=== PATIENT | female | born 1965 | race Hispanic/Latino ===

== ENCOUNTER 2018-09-23 21:47 | Emergency (ER) | payer MEDICARE | END 2018-09-23 22:32 | disposition home or self-care (01) | LOC: EDH 21:47 | DX: G89.29 Other chronic pain (principal); R07.89 Other chest pain; R20.8 Other disturbances of skin sensation; F20.9 Schizophrenia, unspecified; Z90.710 Acquired absence of both cervix and uterus | CPT/HCPCS: 99281 ==

== ENCOUNTER 2018-11-27 21:34 | Emergency (ER) | payer MEDICARE ==
[2018-11-27] MEDS ORDERED: DiphenhydrAMINE HCL 50 MG/ML VIAL ONE (23:03)
[2018-11-27] MEDS ORDERED: ACETAMINOPHEN EXTRA STRENGTH 500 MG TABLET ONE (23:25)
[2018-11-27 23:33] LABS: APPEARANCE,URINE Clear (CLEAR); BILIRUBIN,URINE Negative (NEGATIVE); COLOR,URINE Yellow (YELLOW); GLUCOSE, URINE (UA) Negative (NEGATIVE); KETONES,URINE Trace mg/dL (NEGATIVE); LEUKOCYTE ESTERASE ,URINE Moderate (NEGATIVE); NITRATE,URINE Negative (NEGATIVE); OCCULT BLOOD,URINE Negative (NEGATIVE); PROTEIN,URINE Negative (NEGATIVE); UROBILINOGEN,URINE 0.2 mg/dL (0.2-1.0)
[2018-11-27 23:44] LABS: BACTERIA,URINE None Seen /HPF (None Seen); RBC,URINE None Seen /HPF (0-1); SQUAMOUS EPITHELIAL CELL,UR Rare /HPF (0-2); WBC,URINE 0-1 /HPF (0-1)
== END 2018-11-28 00:22 | disposition home or self-care (01) ==
LOC: EDH 21:34
DX: F20.9 Schizophrenia, unspecified (principal); R07.89 Other chest pain; F31.9 Bipolar disorder, unspecified; Z90.710 Acquired absence of both cervix and uterus
CPT/HCPCS: 71046; 76770; 81001; 96372; 99285; J1200

== ENCOUNTER 2020-03-10 00:42 | Emergency (ER) | payer MEDICARE ==
[2020-03-10] MEDS ORDERED: LIDOCAINE HCL 2% VISCOUS 15 ML UDCUP ONE (00:55)
[2020-03-10] MEDS ORDERED: MAG HYDROX/AL HYDROX/SIMETH ES 30 ML SUSP UDCUP ONE (00:57)
== END 2020-03-10 01:11 | disposition home or self-care (01) ==
LOC: EDH 00:42
DX: K13.79 Other lesions of oral mucosa (principal); F31.9 Bipolar disorder, unspecified; F20.9 Schizophrenia, unspecified; Z90.49 Acquired absence of other specified parts of digestive tract; Z90.710 Acquired absence of both cervix and uterus

== ENCOUNTER 2020-11-26 11:21 | Emergency (ER) | payer OTHER, MEDICARE ==
[~2020-11-26] VITALS: Ht 175.3 cm; Wt 90.7 kg
[2020-11-26 12:09] LABS: APPEARANCE,URINE Clear (CLEAR); BILIRUBIN,URINE Negative (NEGATIVE); COLOR,URINE Yellow (YELLOW); GLUCOSE, URINE (UA) Negative (NEGATIVE); KETONES,URINE Negative (NEGATIVE); LEUKOCYTE ESTERASE ,URINE Trace (NEGATIVE); NITRATE,URINE Negative (NEGATIVE); OCCULT BLOOD,URINE Negative (NEGATIVE); PH,URINE 7.5 (5.0-8.0); PROTEIN,URINE Negative (NEGATIVE); UROBILINOGEN,URINE 0.2 mg/dL (0.2-1.0)
[2020-11-26 12:16] LABS: AMPHET/METH SCREEN,URINE NEGATIVE (NEGATIVE); BARBITURATE SCREEN, URINE NEGATIVE (NEGATIVE); BENZODIAZEPINES SCREEN,URINE NEGATIVE (NEGATIVE); CANNABINOID SCREEN,URINE NEGATIVE (NEGATIVE); COCAINE SCREEN,URINE NEGATIVE (NEGATIVE); OPIATE SCREEN,URINE NEGATIVE (NEGATIVE); PHENCYCLIDINE SCREEN,URINE NEGATIVE (NEGATIVE)
[2020-11-26 12:28] LABS: SQUAMOUS EPITHELIAL CELL,UR Few /HPF (0-2)
[2020-11-26 12:29] LABS: BACTERIA,URINE Few /HPF (None Seen); RBC,URINE None Seen /HPF (0-1); WBC,URINE 0-1 /HPF (0-1)
[2020-11-26 12:30] LABS: BASOPHILS % (AUTO) 0.3 % (0.0-5.0); EOSINOPHILS % (AUTO) 0.7 % (0.0-8.0); HEMATOCRIT 40.2 % (36-48); LYMPHOCYTES % (AUTO) 15.7 % (21.0-51.0); MEAN CORPUSCULAR HEMOGLOBIN 28.9 pg (27.0-33.0); MEAN CORPUSCULAR HGB CONC 33.1 g/dL (32.0-36.0); MEAN CORPUSCULAR VOLUME 87.2 fL (79-99); PLATELET COUNT (AUTO) 334 K/uL (130-400); RED BLOOD CELL COUNT(AUTO) 4.61 MIL/uL (4.00-5.50); RED CELL DISTRIBUTION WIDTH 14.4 % (11.0-15.5); WHITE BLOOD COUNT (AUTO) 7.5 K/uL (4.8-10.8)
[2020-11-26 12:40] LABS: CARBON DIOXIDE 30 mmol/L (21-32); CHLORIDE 105 mmol/L (101-111); CREATININE 0.7 mg/dL (0.5-1.5); GLOMERULAR FILTR. RATE CALC 93 mL/min (>60); GLUCOSE,RANDOM 111 mg/dL (70-105); POTASSIUM 4.5 mmol/L (3.5-5.1); SODIUM SERUM 143 mmol/L (136-145); UREA NITROGEN, BLOOD 18 mg/dL (7-18)
[2020-11-26 12:45] LABS: ALANINE AMINOTRANSFERASE 24 U/L (12-78); ALBUMIN 3.9 g/dL (3.5-5.0); ALCOHOL, BLOOD < 3 mg/dL (0-10); ASPARTATE AMINOTRANSFERASE 18 U/L (10-37); BILIRUBIN,TOTAL 0.4 mg/dL (0.2-1.0); CREATINE KINASE, TOTAL 56 U/L (21-232); TOTAL PROTEIN, SERUM 7.9 g/dL (6.0-8.3)
[2020-11-26 12:46] LABS: ACETAMINOPHEN < 1 mcg/mL (10-30)
[2020-11-26 14:15] VITALS: BP 126/74
== END 2020-11-26 14:37 | disposition left against medical advice (07) ==
LOC: EDH 11:21
DX: R45.851 Suicidal ideations (principal); F20.9 Schizophrenia, unspecified; F41.9 Anxiety disorder, unspecified; F31.9 Bipolar disorder, unspecified; Z98.890 Other specified postprocedural states
CPT/HCPCS: 36415; 80053; 80305; 81001; 82550; 85025; 93005; 99284; G0481

== ENCOUNTER 2023-02-04 12:40 | Emergency (ER) | payer OTHER, MEDICARE ==
[~2023-02-04] VITALS: Ht 167.6 cm; Wt 90.7 kg
[~2023-02-04 12:40] MED LIST: CEPH500B PO
[2023-02-04 12:43] VITALS: BP 143/70; PULSE 72; RESP 18; O2SAT 100
[2023-02-04 13:27] LABS: SARS-CoV-2, RNA, NAAT NEGATIVE SARS CoV-2 (NEGATIVE)
[2023-02-04 13:33] LABS: INFLUENZA TYPE A Negative For Type A (NEGATIVE); INFLUENZA TYPE B Negative For Type B (NEGATIVE)
[2023-02-04 13:39] LABS: RAPID GROUP A STREP negative (NEGATIVE)
== END 2023-02-04 15:07 | disposition left against medical advice (07) ==
LOC: EDH 12:40
DX: R06.7 Sneezing (principal); J31.0 Chronic rhinitis; J02.9 Acute pharyngitis, unspecified; I10 Essential (primary) hypertension; F20.9 Schizophrenia, unspecified; F31.9 Bipolar disorder, unspecified; Z60.2 Problems related to living alone; Z20.822 Contact with and (suspected) exposure to COVID-19
CPT/HCPCS: 99283; 87635; 87880; 87804 ×2; C9803

== ENCOUNTER 2023-03-04 13:25 | Emergency (ER) | payer MEDICARE ==
[~2023-03-04] VITALS: Ht 162.6 cm; Wt 90.7 kg
[2023-03-04 13:30] VITALS: BP 110/69; PULSE 67; RESP 18
== END 2023-03-04 16:31 | disposition left against medical advice (07) ==
LOC: EDH 13:25
DX: R21 Rash and other nonspecific skin eruption (principal); Z53.21 Procedure and treatment not carried out due to patient leaving prior to being seen by health care provider
CPT/HCPCS: 99281

== ENCOUNTER → 2023-04-20 | Emergency (ER) | payer MEDICARE, MEDICAID | LOC: EDH 08:37 | DX: R52 Pain, unspecified (principal); Z53.21 Procedure and treatment not carried out due to patient leaving prior to being seen by health care provider ==

== ENCOUNTER 2023-11-30 01:30 | Emergency (ER) | payer MEDICARE ==
[2023-11-30] MEDS ORDERED: CEPH500B PO (15:30)
== END 2023-11-30 01:31 | disposition left against medical advice (07) ==
LOC: EDH 01:30
DX: M79.671 Pain in right foot (principal); M79.672 Pain in left foot; Z53.21 Procedure and treatment not carried out due to patient leaving prior to being seen by health care provider

== ENCOUNTER 2024-06-23 12:36 | Emergency (ER) | payer MEDICARE ==
[~2024-06-23] VITALS: Ht 175.3 cm; Wt 63.5 kg
--- NOTE | 2024-06-23 12:59 | NUR ---
PT WAS PLACED IN HOSPITAL PAPER SCRUBS AND IS NOW ON A 1:1. SECURITY CALLED TO COME AND RETRIEVE AND SECURE PERSONAL BAG
--- NOTE | 2024-06-23 13:16 | NUR ---
REPORT ENDORSED TO MARISSA COVARRUBIAS
[2024-06-23 13:20] LABS: AMPHET/METH SCREEN,URINE NEGATIVE (NEGATIVE); BARBITURATE SCREEN, URINE NEGATIVE (NEGATIVE); BENZODIAZEPINES SCREEN,URINE NEGATIVE (NEGATIVE); CANNABINOID SCREEN,URINE NEGATIVE (NEGATIVE); COCAINE SCREEN,URINE NEGATIVE (NEGATIVE); OPIATE SCREEN,URINE NEGATIVE (NEGATIVE); PHENCYCLIDINE SCREEN,URINE NEGATIVE (NEGATIVE)
[2024-06-23 13:26] LABS: APPEARANCE,URINE CLEAR (CLEAR); BILIRUBIN,URINE NEGATIVE (NEGATIVE); COLOR,URINE YELLOW (YELLOW); GLUCOSE, URINE (UA) NEGATIVE (NEGATIVE); KETONES,URINE NEGATIVE (NEGATIVE); LEUKOCYTE ESTERASE ,URINE 75 Leu/uL (NEGATIVE); NITRATE,URINE NEGATIVE (NEGATIVE); OCCULT BLOOD,URINE NEGATIVE (NEGATIVE); PROTEIN,URINE NEGATIVE (NEGATIVE); UROBILINOGEN,URINE 0.2 mg/dL (0.2-1.0)
--- NOTE | 2024-06-23 13:27 | NUR ---
PT STATES SHE WANTS TO KILL HERSELF BY TAKING RAT POISON. PT STATES SHE HAS BEEN FEELING MORE URGENCY IN REGARDS TO COMMITING SUICIDE SHE FEELS HER VISUAL HALLUCINATIONS ARE ACCELERATING.
[2024-06-23 13:34] LABS: ADD UA MICROSCOPIC YES
[2024-06-23 13:35] LABS: MUCUS,URINE RARE LPF (None Seen); RBC,URINE 0-1 /HPF (0-1); SQUAMOUS EPITHELIAL CELL,UR RARE /HPF (0-2)
[2024-06-23 13:39] LABS: BASOPHILS # (AUTO) 0.03 K/uL (0.00-0.20); BASOPHILS % (AUTO) 0.4 % (0.0-5.0); EOSINOPHILS # (AUTO) 0.03 K/uL (0.00-0.70); EOSINOPHILS % (AUTO) 0.4 % (0.0-8.0); HEMATOCRIT 33.8 % (36-48); IMMATURE GRANULOCYTE ABSOLUTE 0.03 K/uL (0-1); LYMPHOCYTES # (AUTO) 1.5 K/uL (1.0-4.8); LYMPHOCYTES % (AUTO) 18.9 % (21.0-51.0); MEAN CORPUSCULAR HEMOGLOBIN 28.7 pg (27.0-33.0); MEAN CORPUSCULAR HGB CONC 33.7 g/dL (32.0-36.0); MEAN CORPUSCULAR VOLUME 85.1 fL (79-99); MONOCYTES # (AUTO) 0.6 K/uL (0.1-1.0); MONOCYTES % (AUTO) 7.5 % (3.0-13.0); NEUTROPHILS # (AUTO) 5.7 K/uL (1.8-7.7); NEUTROPHILS % (AUTO) 72.4 % (40.0-77.0); PLATELET COUNT (AUTO) 287 K/uL (130-400); RED BLOOD CELL COUNT(AUTO) 3.97 MIL/uL (4.00-5.50); RED CELL DISTRIBUTION WIDTH 15.3 % (11.0-15.5); WHITE BLOOD COUNT (AUTO) 7.9 K/uL (4.8-10.8)
[2024-06-23 13:48] LABS: CARBON DIOXIDE 30 mmol/L (21-32); CHLORIDE 103 mmol/L (101-111); CREATININE 0.7 mg/dL (0.5-1.0); GLOMERULAR FILTR. RATE CALC 100 mL/min (>90); GLUCOSE,RANDOM 104 mg/dL (70-105); SODIUM SERUM 137 mmol/L (136-145); UREA NITROGEN, BLOOD 22 mg/dL (7-18)
[2024-06-23 13:53] LABS: CREATINE KINASE, TOTAL 84 U/L (21-232)
[2024-06-23 13:56] LABS: ACETAMINOPHEN < 1 mcg/mL (10-30); ALCOHOL, BLOOD < 3 mg/dL (0-10); SALICYLATE < 2.8 mg/dL (2.8-20.0)
--- NOTE | 2024-06-23 14:40 | NUR ---
[facility] WAS CALLED AT THIS TIME, STATE THEY WILL SEND A FIELD ASSEMBLY SUPERVISOR TO EVALUATE HER SOON POSSIBLE.
--- NOTE | 2024-06-23 14:45 | NUR ---
PT STATES SHE WANTS TO LEAVE, WAS ADVISED THAT [facility] IS ON THE WAY. SRTATES SHE IS WILLING TO WAIT
--- NOTE | 2024-06-23 15:15 | NUR ---
STATES SHE WANTS TO LEAVE. MD WAS ADVISED, STATES [facility] WILL HAVE TO BE CALLED. PT WAS ADVSIED THAT SHE WAS UNDER SI WATCH AND [facility] HAS NOT CLEARED HER, [facility] WILL BE CALLED IF SHE WERE TO LEAVE. PT STATES "GPO AHEAD AND GET [facility] HERE, I WANT TO TALK TO THEM'.
--- NOTE | 2024-06-23 15:20 | NUR ---
[facility] WAS CALLED AND DISPATCH STATES THEY WILL SEND SOMEONE TO THE ED
--- NOTE | 2024-06-23 15:26 | NUR ---
[facility] SCREENER IS AT BEDSIDE, STATES PT IS NOT WILLING TO BE SCREENED AT THIS TIME.
--- NOTE | 2024-06-23 15:27 | NUR ---
[facility] SCREENER CAME BY AND STATES PT IS NOW WILLING TO DO SCREENING. WILL ATTEMPT TO DO SCREENING
--- NOTE | 2024-06-23 15:46 | NUR ---
[facility] IS AT BEDSIDE
--- NOTE | 2024-06-23 15:58 | NUR ---
[facility] [employer]: [facility] OFFICER JESSICA SPOKE TO THE PT. NO CASE NUMBER NECESSARY.
--- NOTE | 2024-06-23 16:36 | ERN ---
General Chief Complaint: Psych Evaluation Stated Complaint: SUICIDAL IDEATION Time Seen by MD: 12:38 Source: patient History of Present Illness Initial Comments Patient is a 58-year-old female with a extensive psychiatric history coming in to be evaluated for suicidal ideation. Patient states that she does not want to live in his here for help. Allergies: Coded Allergies: No Known Drug Allergies (Unverified Allergy, Unknown, 09/23/18) Home Meds Active Scripts Cephalexin Monohydrate (Keflex) 500 Mg Cap, 1 CAP PO BID for 10 Days, #20 CAP 0 Refills Prov:BABAK CLEANING MD 11/30/23 Cephalexin Monohydrate (Keflex) 500 Mg Cap, 500 MG PO QID for 7 Days, #28 CAP Prov:STARR FREITAS MD 07/21/23 Past Medical History Past Medical History: Bipolar, High Cholesterol, Hypertension, Schizophrenia, Other Medical History Other: SI/SA, AUDITORY HALLUCINATIONS Past Surgical History: None Surgical History Other: BILATERAL BREAST Social History Social History: Lives alone Female( History) History: Not Applicable ROS Dictation CONSTITUTIONAL: No chills, no fever, no weakness, no diaphoresis, no malaise. HEAD/FACE: No signs of trauma. EENT: No eye pain, no blurred vision, no tearing, no double vision, no ear pain, no ear discharge, no nose pain, no nasal congestion, no throat pain, no throat swelling, no mouth pain. RESPIRATORY: No cough, no orthopnea, no SOB, no stridor, no wheezing. CARDIOVASCULAR: No chest pain, no edema, no palpitations, no syncope. GASTROINTESTINAL/ABDOMINAL: No abdominal pain, no constipation, no diarrhea, no nausea, no vomiting. GENITOURINARY: No abnormal discharge, no dysuria, no frequent urination, no hematuria. No complaints of pain in the genitals. MUSCULOSKELETAL: No back pain, no gout, no joint pain, no joint swelling, no muscle pain, no muscle stiffness, no neck pain. INTEGUMENTARY: No change in color, no change in hair/nails, no dryness, no lesion, no lumps, no rash. NEUROLOGICAL/PSYCH: No anxiety, not depressed, no emotional problem, no headache, no numbness, no pre-existing deficit, no history of seizures, no tremors, no weakness. HEMATOLOGIC/LYMPHATIC: Not anemic, no history of blood clots, no apparent bleeding, no bruising, glands not swollen. All Systems Negative, Except as Noted. Physical Exam Physical Exam Dictation VITAL SIGNS: Reviewed. GENERAL APPEARANCE: Alert, oriented x3, no acute distress, obese. HEAD AND FACE: Non-traumatic. EYES: PERRL, pink conjunctivas, eyelid no trauma, anterior chamber clear. EARS: Pinnas intact and no signs of trauma or erythema. Ear canals clear and no discharge. TMs no erythema. NOSE: No discharge, no bleeding. OROPHARYNX: Mouth normal, teeth no caries, tongue pink. Pharynx clear, no erythema. Tonsils no exudates, no abscesses noted. Mucous membrane moist. NECK: Supple, non-tender, no thyromegaly, no masses, no JVD, no bruits. BREAST: Deferred. CHEST: No tenderness, no crepitus, no paradoxical movement, no retractions. LUNGS: Clear, well-ventilated, symmetric, no rales, no wheezing, no rhonchi, no stridor, good breath sounds bilaterally. HEART: Regular rate, regular rhythm, no murmur, no gallops. VASCULAR: No peripheral edema. ABDOMEN: Soft, positive bowel sounds, nondistended, no guarding, nontender, no rebound, no masses no hepatomegaly, no splenomegaly, no Dumont's sign, no hernias. RECTAL: Deferred. GENITAL: Deferred. NEUROLOGICAL: Normal speech, gross motor function intact, gross sensory function intact. MUSCULOSKELETAL: Neck nontender, full range of motion, back nontender, full range of motion. EXTREMITIES: Nontender, full range of motion. SKIN: Color pink, dry, no turgor, no rash, no lacerations, no abrasions, no contusions. LYMPHATICS: Deferred. Results Laboratory and Microbiology Lab and Micro Result Laboratory Tests Test 06/23/24 12:59 06/23/24 13:36 Urine Color YELLOW (YELLOW) Urine Appearance CLEAR (CLEAR) Urine pH 6.0 (5.0-8.0) Urine Specific [place] 1.020 (1.001-1.031) Urine Protein NEGATIVE mg/dL (NEGATIVE) Urine Glucose (UA) NEGATIVE mg/dL (NEGATIVE) Urine Ketones NEGATIVE mg/dL (NEGATIVE) Urine Occult Blood NEGATIVE (NEGATIVE) Urine Nitrate NEGATIVE (NEGATIVE) Urine Bilirubin NEGATIVE mg/dL (NEGATIVE) Urine Urobilinogen 0.2 mg/dL (0.2-1.0) Urine Leukocyte Esterase 75 Mariann/uL (NEGATIVE) H Urine RBC 0-1 /HPF (0-1) Urine WBC 2-5 /HPF (0-1) H Urine Squamous Epithelial Cells RARE /HPF (0-2) Urine Bacteria None /HPF (None Seen) Urine Opiates Screen NEGATIVE (NEGATIVE) Urine Barbiturates Screen NEGATIVE (NEGATIVE) Urine Phencyclidine Screen NEGATIVE (NEGATIVE) Urine Amphetamines Screen NEGATIVE (NEGATIVE) Urine Benzodiazepines Screen NEGATIVE (NEGATIVE) Urine Cocaine Screen NEGATIVE (NEGATIVE) Urine Marijuana (THC) Screen NEGATIVE (NEGATIVE) White Blood Count 7.9 K/uL (4.8-10.8) Red Blood Count 3.97 MIL/uL (4.00-5.50) L Hemoglobin 11.4 g/dL (12.0-16.0) L Hematocrit 33.8 % (36-48) L Mean Corpuscular Volume 85.1 fL (79-99) Mean Corpuscular Hemoglobin 28.7 pg (27.0-33.0) Mean Corpuscular Hemoglobin Concent 33.7 g/dL (32.0-36.0) Red Cell Distribution Width 15.3 % (11.0-15.5) Platelet Count 287 K/uL (130-400) Mean Platelet Volume 9.0 fL (7.5-10.5) Immature Granulocyte % (Auto) 0.4 % (0-1) Neutrophils (%) (Auto) 72.4 % (40.0-77.0) Lymphocytes (%) (Auto) 18.9 % (21.0-51.0) L Monocytes (%) (Auto) 7.5 % (3.0-13.0) Eosinophils (%) (Auto) 0.4 % (0.0-8.0) Basophils (%) (Auto) 0.4 % (0.0-5.0) Neutrophils # (Auto) 5.7 K/uL (1.8-7.7) Lymphocytes # (Auto) 1.5 K/uL (1.0-4.8) Monocytes # (Auto) 0.6 K/uL (0.1-1.0) Eosinophils # (Auto) 0.03 K/uL (0.00-0.70) Basophils # (Auto) 0.03 K/uL (0.00-0.20) Absolute Immature Granulocyte (auto 0.03 K/uL (0-1) Nucleated Red Blood Cells 0.0 % (0.0-0.19) Sodium Level 137 mmol/L (136-145) Potassium Level 4.0 mmol/L (3.5-5.1) Chloride Level 103 mmol/L (101-111) Carbon Dioxide Level 30 mmol/L (21-32) Blood Urea Nitrogen 22 mg/dL (7-18) H Creatinine 0.7 mg/dL (0.5-1.0) Glomerular Filtration Rate Calc 100 mL/min (>90) Random Glucose 104 mg/dL (70-105) Total Calcium 9.2 mg/dL (8.5-10.1) Total Creatine Kinase 84 U/L (21-232) # Salicylates Level < 2.8 mg/dL (2.8-20.0) L Acetaminophen Level < 1 mcg/mL (10-30) L Serum Alcohol < 3 mg/dL (0-10) Labs Reviewed?: Yes MDM MDM: Differential diagnosis: Suicidal ideation, psychiatric illness Rationale: Tests considered and ordered secondary to shared decision making include: Previous outside records reviewed: Old ER visits. Risk of complication and/or morbidity or mortality of patient management: None Patient is a 58-year-old female coming in to be evaluated for psychiatric illness. She states that he has been suicidal. Patient was evaluated by mental health facility does not meet criteria for inpatient treatment is scheduled for outpatient management. Patient states that she has been longer suicidal and will follow up with plan as agreed upon. ED Course Orders Procedure Category Date Status Time Cbc With Differential LAB 06/23/24 Complete 12:52 Basic Metabolic Panel LAB 06/23/24 Complete 12:52 Alcohol, Blood LAB 06/23/24 Complete 12:52 Salicylate LAB 06/23/24 Complete 12:52 Acetaminophen LAB 06/23/24 Complete 12:52 Urinalysis Profile LAB 06/23/24 Complete 12:52 Creatine Kinase, Total LAB 06/23/24 Complete 12:52 Drug Screen Urine LAB 06/23/24 Complete 12:52 Culture Urine JOEY 06/23/24 In Process 13:34 DX & DISP Disposition: Discharge Departure Impression: Primary Impression: Suicidal ideations Condition: Stable Additional Instructions: FOLLOW-UP WITH PRIMARY CARE PROVIDER IN 1 TO 2 DAYS. TAKE MEDICATIONS DIRECT ED HERE IN THE EMERGENCY ROOM. OKAY TO CONTINUE HOME MEDICATIONS UNLESS OTHERWISE DISCUSSED DURING YOUR VISIT IN THE EMERGENCY ROOM TODAY. RETURN TO YOUR NEAREST EMERGENCY ROOM IF SYMPTOMS WORSEN OR IF THERE IS NO IMPROVEMENT. CALL 911 IF YOU NEED IMMEDIATE ASSISTANCE. TAKE TYLENOL [id number] NEEDED AND IF NO CONTRAINDICATIONS ARE PRESENT. INCREASE ORAL HYDRATION. A WOUND CULTURE OR URINE CULTURE WAS ORDERED HERE IN THE EMERGENCY ROOM DEPARTMENT PLEASE FOLLOW-UP WITH PRIMARY CARE PROVIDER AND ADVISE THEM TO GET REPEAT PORTS FROM OUR FACILITY. IF YOU HAD ANY DAMIEN WRAP/SPLINTS THAT WERE APPLIED HERE, PLEASE DO NOT REMOVE THEM UNTIL YOU SEE YOUR PRIMARY CARE OR SPECIALTY. Referrals: Referrals: KVNG LEAHY (PCP) Time of Disposition: 16:35 BABAK CLEANING MD June 23, 2024 16:35
[2024-06-23 16:42] VITALS: BP 129/61; PULSE 71; RESP 18; TEMP 97.2; O2SAT 97
== END 2024-06-23 16:50 | disposition home or self-care (01) ==
LOC: EDH 12:36
DX: R45.851 Suicidal ideations (principal); E78.00 Pure hypercholesterolemia, unspecified; I10 Essential (primary) hypertension; F20.9 Schizophrenia, unspecified
CPT/HCPCS: 99283; 82550; 80048; 80305; 85025; 87086; 36415; 81001; G0481

== ENCOUNTER 2024-12-05 04:17 | Emergency (ER) | payer MEDICARE ==
[~2024-12-05] VITALS: Ht 175.3 cm; Wt 79.8 kg
--- NOTE | 2024-12-05 04:28 | ERN ---
ED Note History of Present Illness Stated Complaint: NO COMPLAINT Chief Complaint: Other Problems Time Seen by MD: 04:20 Dictation: Patient is a 58-year-old female homeless who was brought by EMS to the emergency department. As per EMS reports patient stated that she does not have any complaints. Here patient stated that she has bilateral flank pain, has been seen recently at [facility] for UTI and was prescribed antibiotic therapy. The patient brought her bottle of antibiotic with her. She does have history of schizophrenia, bipolar disorder, hypertension. Allergies: Coded Allergies: No Known Drug Allergies (Unverified Allergy, Unknown, 09/23/18) Home Meds Active Scripts Cephalexin Monohydrate (Keflex) 500 Mg Cap, 1 CAP PO BID for 10 Days, #20 CAP 0 Refills Prov:BABAK CLEANING MD 11/30/23 Cephalexin Monohydrate (Keflex) 500 Mg Cap, 500 MG PO QID for 7 Days, #28 CAP Prov:STARR FREITAS MD 07/21/23 Past Medical History Past Medical History: Bipolar, High Cholesterol, Hypertension, Schizophrenia, Other Additional Past Medical Hx: SI/SA, AUDITORY HALLUCINATIONS Surgical History: None Surgical History Other: BILATERAL BREAST Social History: Lives alone History: Not Applicable Review of System Dictation NEGATIVE EXCEPT PER HPI Constitutional: Negative for fever,chills, and weight loss Eyes: Negative for injury, pain,redness, and discharge ENT: Negative for injury,pain or swelling Cardiovascular: denies chest pain, palpitations, and edema Respiratory: Negative for shortness of breath, cough, and wheezing, Abdomen/GI: Negative for abdominal pain, nausea, vomiting, diarrhea, and constipation Back: Negative for injury and pain : Bilateral flank pain MS/Extremity: Negative for injury and deformity Skin: Negative for rash, and discoloration Neuro: Negative for headache, weakness, numbness, tingling, and seizure Psych: Negative for suicide ideation, homicidal ideation, and hallucinations Initial Vital Sign VS Vital Signs Date Time Temp Pulse Resp B/P (MAP) Pulse Ox O2 Delivery O2 Flow Rate FiO2 12/05/24 04:28 97.5 75 16 141/81 97 Room Air 0 12/05/24 05:26 21 Physical Exam Dictation General: awake, alert, NAD Head/Face: Normocephalic, atraumatic Eyes: PERRL, EOMI, vision at baseline ENT: oral cavity clear, TMs clear, no signs of infection Neck: Trachea midline, supple, no nuchal rigidity Cardiovascular: RRR, normal S1/S2, No MRGs, no JVD Respiratory: CTAB, no respiratory distress, No rales or wheezes Abdomen: Soft , no tender Skin: Warm, dry, normal turgor, no rash MS/Extremity: Pulses equal, no cyanosis, neurovascular intact, FROM Neuro: COAx4, GCS 15, strength 5/5, CN 2-12 intact, normal cerebellar exam, normal gait, Psych: Normal behavior, mood, and affect normal Results (Laboratory/Radiology) Laboratory/Radiology Laboratory Tests Test 12/05/24 04:30 Urine Color YELLOW (YELLOW) Urine Appearance CLEAR (CLEAR) Urine pH 5.5 (5.0-8.0) Urine Specific [place] 1.027 (1.001-1.031) Urine Protein NEGATIVE mg/dL (NEGATIVE) Urine Glucose (UA) NEGATIVE mg/dL (NEGATIVE) Urine Ketones NEGATIVE mg/dL (NEGATIVE) Urine Occult Blood NEGATIVE (NEGATIVE) Urine Nitrate NEGATIVE (NEGATIVE) Urine Bilirubin NEGATIVE mg/dL (NEGATIVE) Urine Urobilinogen 0.2 mg/dL (0.2-1.0) Urine Leukocyte Esterase 75 Mariann/uL (NEGATIVE) H Urine RBC 0-1 /HPF (0-1) Urine WBC 6-10 /HPF (0-1) H Urine Squamous Epithelial Cells MOD /HPF (0-2) Urine Bacteria RARE /HPF (None Seen) Urine Opiates Screen NEGATIVE (NEGATIVE) Urine Barbiturates Screen NEGATIVE (NEGATIVE) Urine Phencyclidine Screen NEGATIVE (NEGATIVE) Urine Amphetamines Screen NEGATIVE (NEGATIVE) Urine Benzodiazepines Screen NEGATIVE (NEGATIVE) Urine Cocaine Screen NEGATIVE (NEGATIVE) Urine Marijuana (THC) Screen NEGATIVE (NEGATIVE) ED Course ED Course Orders Procedure Category Date Status Time Urinalysis Profile LAB 12/05/24 Complete 04:24 Drug Screen Urine LAB 12/05/24 Complete 04:38 Culture Urine JOEY 12/05/24 In Process 04:58 Ceftriaxone 1g Vial PHA 12/05/24 Complete (Rocephine 1g Inj) 05:30 Ceftriaxone 1g Vial PHA 12/05/24 Complete (Rocephine 1g Inj) 05:14 Current Medications Medications (Trade) Dose Ordered Sig/Srinivasa Route PRN Reason Start Time Stop Time Status Last Admin Dose Admin Ceftriaxone Sodium 1 ml @ As Directed STK-MED ONCE .ROUTE 12/05/24 05:14 12/05/24 05:14 DC Ceftriaxone Sodium (ROCEphine 1G INJ) 1 gm ONCE ONCE IM 12/05/24 05:30 12/05/24 05:31 DC 12/05/24 05:18 Vital Signs Date Time Temp Pulse Resp B/P (MAP) Pulse Ox O2 Delivery O2 Flow Rate FiO2 12/05/24 05:26 97.9 74 17 127/86 97 Room Air* 0 21 12/05/24 04:28 97.5 75 16 141/81 97 Room Air 0 Medical Decision Making MDM 1. Urinary tract infection UA positive for leukocyte esterase 1 g ceftriaxone IM prescribed Patient has oral antibiotics she must finish her on medications. DX & DISP Disposition: Discharge Departure Impression: Primary Impression: UTI (urinary tract infection) Condition: Stable Additional Instructions: RETURN TO ER FOR ANY ACUTE OR WORSENING SYMPTOMS. FOLLOW-UP IN 1-2 DAYS WITH PRIMARY PROVIDER FOR RECHECK OF TODAY'S SYMPTOMS. Referrals: KVNG LEAHY (PCP) TRISTIN MARTINEZ MD Dec 05, 2024 04:28
[2024-12-05 04:54] LABS: APPEARANCE,URINE CLEAR (CLEAR); GLUCOSE, URINE (UA) NEGATIVE (NEGATIVE); LEUKOCYTE ESTERASE ,URINE 75 Leu/uL (NEGATIVE); NITRATE,URINE NEGATIVE (NEGATIVE); OCCULT BLOOD,URINE NEGATIVE (NEGATIVE)
[2024-12-05 04:58] LABS: ADD UA MICROSCOPIC YES
[2024-12-05 05:00] LABS: AMPHET/METH SCREEN,URINE NEGATIVE (NEGATIVE); BARBITURATE SCREEN, URINE NEGATIVE (NEGATIVE); CANNABINOID SCREEN,URINE NEGATIVE (NEGATIVE); COCAINE SCREEN,URINE NEGATIVE (NEGATIVE); SQUAMOUS EPITHELIAL CELL,UR MOD /HPF (0-2)
[2024-12-05] MEDS: cefTRIAXone 1G VIAL 1 GM ONE (05:18)
[2024-12-05 05:26] VITALS: BP 127/86; PULSE 74; RESP 17; TEMP 97.8; O2SAT 97
== END 2024-12-05 06:05 | disposition home or self-care (01) ==
LOC: EDH 04:17
DX: N39.0 Urinary tract infection, site not specified (principal); I10 Essential (primary) hypertension; F31.9 Bipolar disorder, unspecified; E78.00 Pure hypercholesterolemia, unspecified; F20.9 Schizophrenia, unspecified
CPT/HCPCS: 99283; 87086; 80305; 96372; 81001; J0696

== ENCOUNTER 2024-12-05 19:56 | Emergency (ER) | payer MEDICARE ==
[~2024-12-05] VITALS: Ht 175.3 cm; Wt 79.8 kg
[2024-12-05 20:11] VITALS: BP 150/85; PULSE 85; RESP 18; TEMP 98.3; O2SAT 98
--- NOTE | 2024-12-05 20:15 | NUR ---
PT PRESENTS TO ER VIA EMS PREVIOUSLY WITHIN LAST 24 HRS TREATED FOR UTI AND PT HAS ABX ORDERED BY PREVIOUS MD. PRIMARY PT CONCERN IS REQUEST TO BE ADMITTED FOR HOUSING HOWEVER ALSO REQUESTED TRANSPORTATION TO SISTERS HOUSE IN [facility] [facility]. PT WAS EDUCATED ON LOCAL RESOURCES AND SHELTERS HOWEVER SHE ADVISED WAS NO LONGE ALLOWED TO STAY AT THOSE PLACES AND WAS NO LONGER WELCOME IN [facility] OR [place]. i ADVISED WE CAN PROVIDE PHONE FOR HER TO CALL HER SISTER FOR POSSIBLE ASSISTANCE.
--- NOTE | 2024-12-05 20:16 | ERN ---
ED Note History of Present Illness Stated Complaint: BACK PAIN Chief Complaint: Back Pain or Injury Time Seen by MD: 20:03 Allergies: Coded Allergies: No Known Drug Allergies (Unverified Allergy, Unknown, 09/23/18) Home Meds Active Scripts Cephalexin Monohydrate (Keflex) 500 Mg Cap, 1 CAP PO BID for 10 Days, #20 CAP 0 Refills Prov:BABAK CLEANING MD 11/30/23 Cephalexin Monohydrate (Keflex) 500 Mg Cap, 500 MG PO QID for 7 Days, #28 CAP Prov:STARR FREITAS MD 07/21/23 Past Medical History Dictation Patient comes in with complaint of homelessness and needing transportation to [place] where her sister lives. She was seen earlier and was diagnosed with UTI and sounds like she was given a shot of Rocephin and then started on cephalexin. She has a cephalexin. She does struggle with homelessness. It does appear she was given references to homeless shelters but per staff she has been kicked out of them. She wanted us to try to arrange transport to [place] which is greater than 200 miles away. Past Medical History: Bipolar, High Cholesterol, Hypertension, Schizophrenia, Other Additional Past Medical Hx: SI/SA, AUDITORY HALLUCINATIONS Surgical History: None Surgical History Other: BILATERAL BREAST Social History: Lives alone History: Not Applicable Review of System Dictation Ten systems reviewed and negative except as noted in HPI Initial Vital Sign VS Vital Signs Date Time Temp Pulse Resp B/P (MAP) Pulse Ox O2 Delivery O2 Flow Rate FiO2 12/05/24 20:07 98.1 88 18 153/86 0 Room Air 0 12/05/24 20:11 21 Physical Exam Dictation GEN: non toxic, NAD HEENT: atrumatic, PERRL, EOMI, conjunctivae normal NECK: Soft supple nontender Heart RRR, no murmurs Chest: No deformity Lungs: Lungs clear to auscultation Ab: Soft nondistended nontender Back: No midline step-offs. No gross deformity. No CVA tenderness : m/s: Moving all four extremities. No gross deformity Neuro: CN 2-12 intact. Moving all four extremities. Psych: Cooperative ED Course ED Course Vital Signs Date Time Temp Pulse Resp B/P (MAP) Pulse Ox O2 Delivery O2 Flow Rate FiO2 12/05/24 20:11 98.2 85 18 150/85 98 Room Air* 0 21 12/05/24 20:07 98.1 88 18 153/86 0 Room Air 0 Medical Decision Making MDM I did review her UA. Patient was started on cephalexin. Think predominantly her difficulties is with homelessness. Unfortunately we can not arrange for transport to greater than 200 miles away. Staff to talk to her about local homeless resources. Vitals reviewed and she is currently medically clear. She should continue her cephalexin. Patient discharged. DX & DISP Disposition: Discharge Departure Impression: Primary Impression: Homelessness Condition: Stable Referrals: SELF,REFERRAL (PCP) PAMELA TY MD Dec 05, 2024 20:16
== END 2024-12-05 20:33 | disposition home or self-care (01) ==
LOC: EDH 19:56
DX: M54.9 Dorsalgia, unspecified (principal); F31.9 Bipolar disorder, unspecified; E78.00 Pure hypercholesterolemia, unspecified; I10 Essential (primary) hypertension; F20.9 Schizophrenia, unspecified; Z59.00 Homelessness unspecified; Z87.440 Personal history of urinary (tract) infections
CPT/HCPCS: 99282; 99283